=== PATIENT | male | born 1945 | race Caucasian/White ===

== ENCOUNTER 2024-02-13 10:40 | Emergency (ER) | payer SELFPAY ==
[2024-02-13 11:58] VITALS: BP 103/68; PULSE 63; RESP 18; TEMP 98.1; BMI 31.1
== END 2024-02-13 12:31 | disposition home or self-care (01) ==
LOC: JER 10:40
DX: R00.2 Palpitations (principal); Z00.01 Encounter for general adult medical examination with abnormal findings
CPT/HCPCS: 93005; 93010; 99283-25